=== PATIENT | female | born 1980 | race American Indian/Alaskan Native ===

== ENCOUNTER 2016-12-05 08:18 | Day surgery (SDC) | payer BC ==
[2016-12-05] MEDS ORDERED: DIPRIVAN 10 MG/ML IV ONE ×2 (08:43→10:30)
[2016-12-05] MEDS ORDERED: SUBLIMAZE ONE ×3 (08:43→12:24)
[2016-12-05] MEDS ORDERED: DECADRON ONE ×2 (08:44→11:32)
[2016-12-05] MEDS ORDERED: XYLOCAINE MPF 2% ONE ×2 (08:44→11:32)
[2016-12-05] MEDS ORDERED: PEPCID PO NR (09:00)
[2016-12-05] MEDS ORDERED: VERSED IV NR (09:00)
[2016-12-05] MEDS ORDERED: NACL 0.9% 1000 ML 1,000 ML IV SCH (09:00)
[2016-12-05] MEDS ORDERED: DILAUDID IV PRN (09:11)
[2016-12-05] MEDS ORDERED: ZOFRAN IV PRN (09:11)
--- NOTE | 2016-12-05 09:24 | Anesthesia Consultation ---
Anesthesia Consult and Med Hx Date of service: 12/05/16 - Airway Anesthetic Teeth Evaluation: Good ROM Head & Neck: Adequate Mental/Hyoid Distance: Adequate Mallampati Class: Class I Intubation Access Assessment: Good - Pulmonary Exam CTA: Yes - Cardiac Exam Cardiac Exam: RRR - Pre-Operative Health Status ASA Pre-Surgery Classification: ASA3 Proposed Anesthetic Plan: General - Pre-Anesthesia Comment Pre-Anesthesia Comments: Hx of gastric bypass in 2012 - Pulmonary Hx Smoking: No Hx Asthma: No Hx Sleep Apnea: No - Cardiovascular System Hx Hypertension: Yes (OFF MEDS SINCE 2011) Hx Heart Attack/AMI: No Hx Percutaneous Transluminal Coronary Angioplasty (PTCA): No - Central Nervous System Hx Seizures: No CVA: No Hx Psychiatric Problems: No - Gastrointestinal Hx Gastroesophageal Reflux Disease: No - Endocrine Hx Renal Disease: No Hx Liver Disease: No Hx Non-Insulin Dependent Diabetes: Yes (off meds since 2011 sp gastric bypass) - Hematic Hx Anemia: Yes (iron infusion, received transfusion in past: no compl) Hx Sickle Cell Disease: No - Other Systems Hx Cancer: No Hx Obesity: Yes - Additional Comments Anesthesia Medical History Comments: NAC
--- NOTE | 2016-12-05 09:24 | Anesthesia Day of Surgery ---
Anesthesia Day of Surgery - Day of Surgery Patient Examined: Yes Patient H&P Reviewed: Yes Patient is NPO: Yes
[2016-12-05] MEDS ORDERED: VERSED ONE (10:28)
[2016-12-05] MEDS ORDERED: ANCEF/STERILE WATER 2 GM/20 ML IV NR (11:00)
[2016-12-05] MEDS ORDERED: NACL 0.9% IR ONE (11:30)
[2016-12-05] MEDS ORDERED: QUELICIN ONE (11:32)
[2016-12-05] MEDS ORDERED: ROBINUL ONE (11:32)
[2016-12-05] MEDS ORDERED: ZEMURON IV ONE (11:32)
[2016-12-05] MEDS ORDERED: NEOSTIGMINE ONE (11:32)
[2016-12-05] MEDS ORDERED: ZOFRAN ONE ×2 (11:32→16:04)
[2016-12-05] MEDS ORDERED: LACTATED RINGERS 1,000 ML ONE ×2 (11:32→12:49)
[2016-12-05] MEDS ORDERED: NEO SYNEPHRINE/NS Syringe(OR USE) IV ONE (12:00)
[2016-12-05] MEDS ORDERED: NACL 0.9% 100 ML ONE (12:19)
[2016-12-05] MEDS ORDERED: NEO SYNEPHRINE ONE (12:19)
[2016-12-05] MEDS ORDERED: DILAUDID ONE ×2 (13:05→13:58)
--- NOTE | 2016-12-05 14:44 | Short Stay Summary ---
Short Stay Documentation Date of service: 12/05/16 - Allergies and Medications Current Medications: Allergies No Known Allergies Allergy (Verified 12/05/16 08:53) Home Medications Medication Instructions Recorded Confirmed Last Taken Type No Known Home Medications [No 12/01/16 12/01/16 Unknown History Reported Home Medications] Active Medications Cefazolin Sodium (Ancef/Sterile Water 2 Gm/20 Ml) 2 gm IV PREOP NR Stop: 12/05/16 23:00 Famotidine (Pepcid) 20 mg PO PREOP NR Stop: 12/05/16 23:00 Last Admin: 12/05/16 09:51 Dose: 20 mg Hydromorphone HCl (Dilaudid) 0.5 mg IV Q10MIN PRN PRN Reason: Pain , Severe (7-10) Stop: 12/05/16 18:00 Sodium Chloride (Nacl 0.9% 1000 Ml) 1,000 mls @ 75 mls/hr IV DIRECT TOMMY Last Admin: 12/05/16 10:05 Dose: 75 mls/hr Midazolam HCl (Versed) 2 mg IV PREOP NR Stop: 12/05/16 23:59 Last Admin: 12/05/16 10:28 Dose: 2 mg - Brief post op/procedure progress note Date of procedure: 12/05/16 Pre-op diagnosis: Macromastia Post-op diagnosis: same Procedure: Ariel Breast Reduction Anesthesia: GETA Surgeon: MING RICKETTS JR Estimated blood loss: 50-100ml Specimen disposition: to lab Condition: stable - Disposition Condition at discharge: Good Disposition: DISCHARGED TO HOME OR SELFCARE Short Stay Discharge Plan Follow up with: PRIMARY CARE, [Primary Care Provider] - 7 Days
--- NOTE | 2016-12-05 14:45 | Discharge Summary ---
Short Stay Discharge Plan Activity: no restrictions Weight Bearing Status: Full Weight Bearing Diet: regular Wound: remove dressing (72hrs) Follow up with: PRIMARY CAREMD [Primary Care Provider] - 07/03/17 WORK,IMNG Jane JR, MD [Staff Physician] - 7 Days
[2016-12-05] MEDS ORDERED: PERCOCET 5/325 PO ONE (15:48)
[2016-12-05 18:04] VITALS: BP 138/76
--- NOTE | 2016-12-05 19:11 | Operative Report ---
PREOPERATIVE DIAGNOSIS: Macromastia. POSTOPERATIVE DIAGNOSIS: Macromastia. PROCEDURE: Bilateral reduction mammoplasty. SURGEON: Robbie Schuster MD PRODUCT SUPPORT ENGINEER: Leighton Rankin CSA FINDINGS: 1920 g removed from the left breast, 2180 g removed from the right breast. DESCRIPTION OF PROCEDURE: The patient was brought in the operating room and placed on the table in supine position. Following administration of general anesthesia, bilateral breasts were prepped with Betadine solution and draped in usual sterile manner. A #10 blade scalpel was used to make a circumareolar skin incision followed by de-epithelization of an inferior dermal pedicle. Modified [place] pattern skin markings were incised with the scalpel, deepened through subcutaneous fat and breast tissue using electrocautery. Skin flaps were raised in standard manner as was fashioning of an inferior central mound pedicle. Breasts tissue was resected and sent to Pathology as specimen. Hemostasis controlled using the electrocautery. Closure was performed over 10 mm Gustavo drains using interrupted and running subcuticular 2-0 Monocryl sutures. Mastisol, Steri-Strips, and sterile dressings applied. The patient tolerated the procedure well and returned to recovery room in stable condition. JOB# [id number] FTW/RIO
== END 2016-12-05 16:46 | disposition home or self-care (01) ==
LOC: OR 08:18
PROVIDERS: ATTEND Plastic Surgery
DX: N62 Hypertrophy of breast (principal); I10 Essential (primary) hypertension; E11.9 Type 2 diabetes mellitus without complications; D64.9 Anemia, unspecified; G47.33 Obstructive sleep apnea (adult) (pediatric); E66.9 Obesity, unspecified; Z98.84 Bariatric surgery status; Z79.899 Other long term (current) drug therapy; Z90.49 Acquired absence of other specified parts of digestive tract; Z98.51 Tubal ligation status; Z82.61 Family history of arthritis; Z82.5 Family history of asthma and other chronic lower respiratory diseases; Z82.49 Family history of ischemic heart disease and other diseases of the circulatory system; Z80.9 Family history of malignant neoplasm, unspecified
CPT/HCPCS: 19318; 88305; J0330; J0690; J1100; J1170; J2250; J2370; J2405; J2704; J2710; J3010; J7030; J7120